=== PATIENT | female | born 1945 | race Two or more races ===

== ENCOUNTER 2017-12-04 08:16 | Day surgery (SDC) | payer OTHER ==
[2017-12-04] MEDS ORDERED: PREDNISOLONE ACET 1% 5 ML OPH (09:02)
[2017-12-04] MEDS ORDERED: MOXIFLOXACIN 0.5% 3 ML OPH (09:02)
[2017-12-04] MEDS ORDERED: TROPICAMIDE 1% 3 ML OPH (09:02)
[2017-12-04] MEDS: MOXIFLOXACIN 0.5% 3 ML OPH OPER ×3 (09:36→09:46)
[2017-12-04] MEDS: PHENYLephrine 2.5% 15 ML OPH OPER ×4 (09:36→09:50)
[2017-12-04] MEDS: TROPICAMIDE 1% 3 ML OPH OPER ×4 (09:36→10:00)
[2017-12-04] MEDS: PREDNISOLONE ACET 1% 5 ML OPH OPER (09:36)
[2017-12-04] MEDS: PROPARACAINE 0.5% 15 ML OPH OPER ×3 (09:50→10:00)
[2017-12-04] MEDS ORDERED: SOD CHLORIDE 0.9% 1,000 ML IV (10:00)
[2017-12-04] MEDS ORDERED: LABETALOL HCL 20MG INJ IV (10:30)
[2017-12-04] MEDS ORDERED: hydrALAzine 20 MG INJ IV (10:30)
[2017-12-04] MEDS ORDERED: ONDANSETRON 4 MG INJ IV (10:30)
[2017-12-04] MEDS ORDERED: EPINEPHrine 1 MG INJ (10:51)
[2017-12-04] MEDS ORDERED: LIDOCAINE 1%/EPI 30 ML INJ (10:51)
[2017-12-04] MEDS ORDERED: CARBACHOL 0.01% 1.5 ML OPH INJ (10:52)
[2017-12-04] MEDS ORDERED: MIDAZOLAM 1 MG/ML 2 ML INJ (11:05)
[2017-12-04] MEDS ORDERED: FENTAnyl 50 MCG/ML VIAL (11:05)
[2017-12-04] MEDS ORDERED: PROPOFOL 20 ML (11:22)
[2017-12-04] MEDS ORDERED: LIDOCAINE 2% (SDV) 5 ML INJ (11:22)
== END 2017-12-04 13:20 | disposition home or self-care (01) ==
LOC: SDS 08:16
DX: H25.89 Other age-related cataract (principal); I10 Essential (primary) hypertension
CPT/HCPCS: 66984; 93005